=== PATIENT | female | born 1970 | race Two or more races ===

== ENCOUNTER 2018-08-15 23:45 | Emergency (ER) | payer OTHER ==
--- NOTE | 2018-08-16 00:16 | EDM.PDOC ---
ED HPI GENERAL MEDICAL PROBLEM - General Chief Complaint: ENT Problem Stated Complaint: CHICKEN BONE STUCK IN THROAT Time Seen by Provider: 08/16/18 00:11 Source of Information: Reports: Patient History Limitations: Reports: No Limitations - History of Present Illness INITIAL COMMENTS - FREE TEXT/NARRATIVE: Patient is a 48-year-old female who presents to the emergency department this evening with a complaint of suspected swallowing of foreign body. Patient states that she was eating chicken and she thinks she may have swallowed a bone. Patient states that this happened about 1915 this evening and she has been able to drink but still has a sensation and irritation in throat. Patient denies shortness of breath, vomiting, abdominal pain, or cough. Onset: Today Onset Date: 08/16/18 Onset Time: 19:15 Duration: Hour(s): Location: Reports: Neck Quality: Reports: Other (Irritation) Improves with: Reports: None Worsens with: Reports: Other (Swallowing) Associated Symptoms: Reports: No Other Symptoms Throat Pain Score (Numeric/FACES): 3 - Related Data Allergies Allergy/AdvReac Type Severity Reaction Status Date / Time No Known Drug Allergies Allergy Other Verified 08/15/18 23:56 Home Meds: Home Meds Multivitamin [Multi-Vitamin Daily] 1 each PO DAILY 08/15/18 [History] Past Medical History HEENT History: Reports: Impaired Vision Gastrointestinal History: Reports: None Genitourinary History: Reports: None - Past Surgical History GI Surgical History: Reports: Cholecystectomy Female Surgical History: Reports: Section ED ROS ENT - Review of Systems Review Of Systems: ROS reveals no pertinent complaints other than HPI. Constitutional: Reports: No Symptoms HEENT: Reports: Throat Pain Respiratory: Reports: No Symptoms Cardiovascular: Reports: No Symptoms Endocrine: Reports: No Symptoms GI/Abdominal: Reports: No Symptoms : Reports: No Symptoms Musculoskeletal: Reports: No Symptoms Skin: Reports: No Symptoms Neurological: Reports: No Symptoms Psychiatric: Reports: No Symptoms Hematologic/Lymphatic: Reports: No Symptoms Immunologic: Reports: No Symptoms ED EXAM, ENT - Physical Exam Exam: See Below Exam Limited By: No Limitations General Appearance: Alert, WD/WN, No Apparent Distress Nose: Normal Inspection Mouth/Throat: Normal Inspection, Normal Lips, Normal Oropharynx. No: Drooling, Hoarse Voice, Pharyngeal Erythema Neck: Normal Inspection, Supple, Non-Tender, Other (. No discomfort with palpation of the esophagus and trachea) Respiratory/Chest: No Respiratory Distress, Lungs Clear, Normal Breath Sounds Cardiovascular: Regular Rate, Rhythm, No Murmur GI/Abdominal: Normal Bowel Sounds, Soft, Non-Tender Neurological: Alert, Oriented, Normal Cognition Psychiatric: Normal Affect, Normal Mood Skin: Warm, Dry, Intact, Normal Color, No Rash Lymphatic: No Adenopathy Course - Vital Signs Last Recorded V/S: Last Vital Signs Temp 98.0 F 08/15/18 23:58 Pulse 69 08/15/18 23:58 Resp 18 08/15/18 23:58 BP 138/74 08/15/18 23:58 Pulse Ox 96 08/15/18 23:58 - Re-Assessments/Exams Free Text/Narrative Re-Assessment/Exam: 08/16/18 00:15 Patient afebrile, vital signs stable, able to take by mouth fluids without difficulty. Patient will return to the ER if symptoms continue or worsen Departure - Departure Time of Disposition: 00:16 Disposition: Home, Self-Care 01 Condition: Good Clinical Impression: H/O swallowed foreign body - Discharge Information Instructions: Swallowed Foreign Body, Adult, [id number] Additional Instructions: Follow-up with PCP tomorrow. Return to emergency department sooner if symptoms continue or worsen. - Assessment/Plan Assessment:: Suspected swallowed foreign body Plan: Follow-up with PCP
== END 2018-08-16 00:20 | disposition home or self-care (01) ==
LOC: KA.ED 23:45 → MERGE 23:45 → KA.ED 08-16 00:20
DX: R09.89 Other specified symptoms and signs involving the circulatory and respiratory systems (principal)
CPT/HCPCS: 99283

== ENCOUNTER 2024-09-09 23:05 | Emergency (ER) | payer SELFPAY ==
[2024-09-09] MEDS: Sodium Chloride 0.9% 10 ML Syringe FLUSH PRN (23:27)
[2024-09-09] MEDS: Ondansetron 4 MG/2 ML SDV IVPUSH ONE (23:30)
[2024-09-09 23:32] LABS: BASOPHILS ABSOLUTE AUTO 0.09 10^3/uL (0.00-0.10); BASOPHILS PERCENT AUTO 0.8 % (0.0-1.0); EOSINOPHILS ABSOLUTE AUTO 0.37 10^3/uL (0.10-0.30); EOSINOPHILS PERCENT AUTO 3.2 % (1.0-3.0); HEMATOCRIT 45.7 % (37.0-47.0); HEMOGLOBIN 14.8 g/dL (12.0-16.0); IMMATURE GRAN ABSOLUTE AUTO 0.01 10^3/uL (0.00-0.04); IMMATURE GRAN PERCENT AUTO 0.1 % (0.0-0.4); LYMPHOCYTES PERCENT AUTO 22.6 % (20.0-40.0); MEAN CORPUSCULAR HEMOGLOBIN 28.1 pg (27.0-31.0); MEAN CORPUSCULAR HGB CONC 32.4 g/dL (32.0-36.0); MEAN CORPUSCULAR VOLUME 86.9 fL (82.0-92.0); MEAN PLATELET VOLUME 11.1 fL (7.4-10.4); MONOCYTES PERCENT AUTO 6.1 % (2.0-8.0); NEUTROPHILS ABSOLUTE AUTO 7.72 10^3/uL (2.50-7.00); NEUTROPHILS PERCENT AUTO 67.2 % (50.0-70.0); PLATELET COUNT,PLT 256 10^3/uL (150-400); RED BLOOD CELL COUNT 5.26 10^6/uL (3.80-5.50); RED CELL DISTRIBUTION WIDTH 12.3 % (11.5-14.5); WHITE BLOOD CELL COUNT,WBC 11.49 10^3/uL (5.00-10.00)
[2024-09-09] MEDS: HYDROmorphone 1 MG/ML Syringe IVPUSH ONE (23:36)
[2024-09-09 23:42] LABS: APPEARANCE,URINE CLEAR (CLEAR); COLOR,URINE YELLOW (YELLOW)
[2024-09-09 23:43] LABS: BILIRUBIN,URINE NEGATIVE (NEGATIVE); GLUCOSE,URINE NEGATIVE (NEGATIVE); KETONES,URINE NEGATIVE (NEGATIVE); LEUKOCYTE ESTERASE,URINE NEGATIVE (NEGATIVE); NITRITE,URINE NEGATIVE (NEGATIVE); OCCULT BLOOD,URINE TRACE-INTACT (NEGATIVE); PROTEIN,URINE NEGATIVE (NEGATIVE); UROBILINOGEN,URINE 0.2 E.U./dL (0.2-1.0)
[2024-09-09] MEDS: Sodium Chloride 0.9% 1,000 ML IV ONE (23:45)
[2024-09-09 23:49] LABS: BACTERIA,URINE RARE /HPF (NONE TO FEW); EPITHELIAL CELLS,URINE RARE /LPF; HYALINE CASTS,URINE FEW; MUCUS,URINE MANY /LPF (NEGATIVE); RBC,URINE 0-5 /HPF (0-5); WBC,URINE NOT SEEN /HPF (0-5)
[2024-09-09 23:54] LABS: ALANINE AMINOTRANSFERASE,ALT 30 U/L (14-63); ALBUMIN 3.78 g/dL (3.40-5.00); ALKALINE PHOSPHATASE 76 U/L (46-116); ANION GAP 3.4 mmol/L (5-15); ASPARTATE AMNIOTRANSFERASE,AST 24 U/L (15-37); BILIRUBIN TOTAL 0.4 mg/dL (0.2-1.0); BLOOD UREA NITROGEN,BUN 13 mg/dL (7-18); CALCIUM 9.3 mg/dL (8.7-10.3); CARBON DIOXIDE,CO2 26.3 mmol/L (21.0-32.0); CHLORIDE,CL 100 mmol/L (98-107); CREATININE 0.61 mg/dL (0.51-1.17); ESTIMATED GFR 106 mL/min (>=60); GLUCOSE RANDOM 128 mg/dL (70-140); POTASSIUM,K 3.7 mmol/L (3.5-5.1); PROTEIN TOTAL,TP 7.1 g/dL (6.4-8.2); SODIUM,NA 126 mmol/L (136-145)
[2024-09-10] MEDS: Ketorolac 10 MG Tab PO ONE (01:06)
== END 2024-09-10 01:21 | disposition home or self-care (01) ==
LOC: KA.ED 23:05
DX: E87.1 Hypo-osmolality and hyponatremia (principal); R31.1 Benign essential microscopic hematuria; R10.9 Unspecified abdominal pain; Z91.49 Other personal history of psychological trauma, not elsewhere classified; Z79.899 Other long term (current) drug therapy
CPT/HCPCS: 74176; 80053; 81001; 85025; 96361; 96365; 96375; 99284; A9270; J1171; J2405; J2800; J3490; J7030